=== PATIENT | female | born 1975 | race Asian ===

== ENCOUNTER 2018-03-05 12:49 | Emergency (ER) | payer SELFPAY ==
[~2018-03-05] VITALS: Ht 167.6 cm; Wt 68.9 kg
[2018-03-05 12:59] VITALS: BP 124/69
== END 2018-03-05 14:10 | disposition home or self-care (01) ==
LOC: ED 14:01
DX: L03.90 Cellulitis, unspecified (principal)
CPT/HCPCS: 99283